=== PATIENT | female | born 1980 | race Caucasian/White ===

== ENCOUNTER 2022-01-12 16:52 | Inpatient (IN) | payer OTHER, MEDICAID ==
[~2022-01-12] VITALS: Ht 167.6 cm; Wt 56.7 kg
[2022-01-12 17:02] VITALS: BP_SYST 107
--- NOTE | 2022-01-12 17:06 | NUR ---
Patient triaged and placed in waiting room. VSS and patient appears in no acute distress at this time. Accompanied by SELF, awaiting available bed, and MD notified of need for MSE.
[2022-01-12] MEDS ORDERED: NACL 0.9% 1,000 ML IV ONE (17:45)
--- NOTE | 2022-01-12 18:04 | NUR ---
Patient to ER bed 07 to gown for evaluation. Side rails up. Report given to DG Mondragon
[2022-01-12 18:13] LABS: BASOPHILS % (AUTO) 0.4 % (0.0-2.0); EOSINOPHILS % (AUTO) 0.9 % (0.0-4.0); HEMATOCRIT 41.1 % (36-48); HEMOGLOBIN 13.9 g/dL (12.0-16.0); LYMPHOCYTES # (AUTO) 0.8 K/uL (1.0-5.5); MEAN CORPUSCULAR HEMOGLOBIN 30 pg (27-31); MEAN CORPUSCULAR HGB CONC 34 % (32-36); MEAN CORPUSCULAR VOLUME 88 fL (79.0-98.0); MONOCYTES # (AUTO) 0.4 K/uL (0.0-1.0); MONOCYTES % (AUTO) 8.9 % (1.7-9.3); NEUTROPHILS # (AUTO) 2.8 K/uL (1.8-7.7); NEUTROPHILS % (AUTO) 70.8 % (40.0-70.0); PLATELET COUNT (AUTO) 205 K/uL (130-430); RED BLOOD CELL COUNT(AUTO) 4.65 MIL/uL (4.2-6.2); RED CELL DISTRIBUTION WIDTH 13.2 % (9.0-15.0)
[2022-01-12 18:14] LABS: ANION GAP 7 (5-15); CALCIUM 8.6 mg/dL (8.4-11.0); CHLORIDE 104 mmol/L (98-107); CREATININE 0.79 mg/dL (0.55-1.30); GLUCOSE 90 mg/dL (70-99); POTASSIUM 4.2 mmol/L (3.5-5.1); SODIUM SERUM 139 mmol/L (136-145); UREA NITROGEN, BLOOD 9 mg/dL (8-21)
[2022-01-12 18:16] LABS: GFR AFRICAN AMERICAN 103 mL/min (>90)
[2022-01-12 18:18] LABS: BILIRUBIN,URINE NEGATIVE (NEGATIVE); BLOOD, URINE NEGATIVE (NEGATIVE); CLARITY/URINE CLEAR (CLEAR); COLOR,URINE YELLOW (YELLOW); GLUCOSE,URINE NEGATIVE (NEGATIVE); KETONES,URINE NEGATIVE (NEGATIVE); LEUKOCYTE ESTERASE ,URINE NEGATIVE (NEGATIVE); NITRITE, URINE NEGATIVE (NEGATIVE); PROTEIN URINE NEGATIVE (NEGATIVE); UROBILINOGEN,URINE 0.2 (0.2-1.0)
--- NOTE | 2022-01-12 18:19 | NUR ---
Pt is A&Ox4. Skin intact. States she has been having diarrhea for the past month but states this morning pt woke up covered in diarrhea and has to wear a diaper. She usually is not incontinent but states she caanot hold the diarrhea. Has no pain. Denies n/v. No chest pain and no sob. VSS. Bed in lowast position. Allergic to lithium. Has hx of seizures and psych issues.
[2022-01-12 18:20] LABS: ALANINE AMINOTRANSFERASE 22 U/L (12-78); ALBUMIN 4.4 g/dL (3.4-4.8); ASPARTATE AMINOTRANSFERASE 16 U/L (10-37); TOTAL BILIRUBIN < 0.1 mg/dL (0.0-1.0)
--- NOTE | 2022-01-12 18:39 | NUR ---
# 20 gauge angiocath placed to left hand. Use of asceptic technique. Opsite placed over site. Blood return noted. Flushed with 10 cc of normal saline. No evidence of infiltration noted. Patient tolerated well.
--- NOTE | 2022-01-12 19:05 | NUR ---
covid swab collected at bedside and sent to lab
--- NOTE | 2022-01-12 19:53 | NUR ---
Admit bed requested Patient will be admitted to care of . Admitted to TELE unit. Diagnosis DEHYDRATION AND ENTERITIS Inpatient (Yes or No) YES Orientation concerns or request close to nursing station (Yes or No) NO Covid Status NEG From Home (Yes or if No enter name of facility) HOME
--- NOTE | 2022-01-12 20:49 | NUR ---
Note daniel in ED - 01/12/22 at 2137 by [facility] ASSUMED CARE, PT IN NAD. RESP EVEN AND UNLABORED, IV FLUIDS COMPLETED. CLAMPED IV, VSS. DENIES ANY N/V AT THIS TIME.
[2022-01-12] MEDS ORDERED: NEU300 PO (21:02)
[2022-01-12] MEDS ORDERED: ESCI20TA PO (21:02)
[2022-01-12] MEDS ORDERED: LURA80TA2 PO (21:02)
[2022-01-12] MEDS ORDERED: LEVE500T9 PO (21:02)
[2022-01-12] MEDS ORDERED: TRAZ-250 PO (21:02)
--- NOTE | 2022-01-12 21:02 | NUR ---
Medication reconciliation completed with information provided by PATIENT. Any prior medication reconciliation on file was reviewed and corrected.
--- NOTE | 2022-01-12 21:10 | NUR ---
ASSUMED CARE, PT IN NAD. RESP EVEN AND UNLABORED, IV FLUIDS COMPLETED. CLAMPED IV, VSS. DENIES ANY N/V AT THIS TIME.
--- NOTE | 2022-01-12 21:34 | NUR ---
PT UP TO BATHROOM, CUP PROVIDED FOR STOOL COLLECTION.
--- NOTE | 2022-01-12 21:51 | NUR ---
STOOL COLLECTION COLLECTED AND SENT TO LAB.
--- NOTE | 2022-01-12 22:45 | NUR ---
PT REPORTS NAUSEA, AND REQUETING ANTIEMETIC. DR CASTELLANOS NOT ANSWERING HIS PHONE PER WHEEL AND CASTER REPAIRER WILL. DR HIGGINBOTHAM GAVE ORDERS FOR ZOFRAN PRN. PT MEDICATED ORDERED.
[2022-01-12] MEDS: ONDANSETRON HCL 4 MG/2 ML VIAL IVP PRN (23:13)
--- NOTE | 2022-01-12 23:14 | NUR ---
PT REPORTS FEELING BETTER. WAITING FOR ADMISSION BED. CN NOTIFIED.
--- NOTE | 2022-01-13 | NUR ---
Admission Note Received patient from ER with diagnosis of DEYDRATION/ ENTERITIS. Initial Plan of Care discussed-patient verbalized understanding. Oriented to room, call light, pain management and safety.
--- NOTE | 2022-01-13 00:57 | NUR ---
Patient will be admitted to care of DR CASTELLANOS. Admitted to unit. Will go to room . Belongings list completed. Complete and up to date summary report printed. SBAR report to be given at bedside with opportunity for questions.
[2022-01-13 01:58] VITALS: BP_SYST 128
--- NOTE | 2022-01-13 02:36 | NUR ---
CONSULTATION PAGED/CALLED Reason for Consultation: DEHYDRATION/ENTERITIS Person Who was Notified: ELBERT Consulting Physician: DR. TAPIA University Professor Specialty: Ordering Physician: DR. CASTELLANOS
--- NOTE | 2022-01-13 04:00 | NUR ---
APPROXIMATELY at this time Dr. Quevedo finally calls back (was paged earlier) Asked about diet order and resuming meds Along with the addition of nicotine patch 21mg which was approved, all meds continued. Diet order regular.
--- NOTE | 2022-01-13 05:48 | NUR ---
CONSULTATION PAGED/CALLED Reason for Consultation: LOOSE STOOL Person Who was Notified: ELBERT Consulting Physician: DR. TAPIA Catalogue Clerk Specialty: Ordering Physician: DR. CASTELLANOS
--- NOTE | 2022-01-13 05:56 | NUR ---
CONSULTATION PAGED/CALLED Reason for Consultation: PATIENT ON PSYCH MEDS Person Who was Notified: ZHANG Consulting Physician: DR. BURKS Water Fabricator Operator Specialty: Ordering Physician: DR. CASTELLANOS
[2022-01-13] MEDS: NACL 0.9% 1,000 ML IV SCH ×5 (06:00→22:10)
--- NOTE | 2022-01-13 07:00 | NUR ---
OPENING PT APPEARS VERY ANXIOUS, STATED THAT SHE NEEDED HER SEIZURE AND PSYCH MEDS SHE MISSED TO TAKE THEM YESTERDAY. REASSURED PATIENT THAT WILL ATTEND TO HER NEEDS SOON HANDS ON REPORT IS FINISHED
[2022-01-13 07:10] LABS: BASOPHILS % (AUTO) 0.5 % (0.0-2.0); EOSINOPHILS % (AUTO) 1.5 % (0.0-4.0); HEMATOCRIT 36.7 % (36-48); HEMOGLOBIN 12.4 g/dL (12.0-16.0); LYMPHOCYTES # (AUTO) 0.8 K/uL (1.0-5.5); LYMPHOCYTES % (AUTO) 28.8 % (20.5-51.5); MEAN CORPUSCULAR HEMOGLOBIN 30 pg (27-31); MEAN CORPUSCULAR HGB CONC 34 % (32-36); MEAN CORPUSCULAR VOLUME 87 fL (79.0-98.0); MONOCYTES # (AUTO) 0.4 K/uL (0.0-1.0); MONOCYTES % (AUTO) 13.6 % (1.7-9.3); NEUTROPHILS # (AUTO) 1.6 K/uL (1.8-7.7); NEUTROPHILS % (AUTO) 55.6 % (40.0-70.0); PLATELET COUNT (AUTO) 169 K/uL (130-430); RED BLOOD CELL COUNT(AUTO) 4.21 MIL/uL (4.2-6.2); RED CELL DISTRIBUTION WIDTH 13.3 % (9.0-15.0)
--- NOTE | 2022-01-13 07:24 | NUR ---
CLOSING NOTES Patient resting in bed - no s/s pain or distress noted. Respirations even and unlabored - head of bed elevated. IV site patent - no s/s redness, infection, or infiltration. Bed locked and in lowest position. Call light within reach.
[2022-01-13 07:28] LABS: CALCIUM 7.4 mg/dL (8.4-11.0); CREATININE 0.64 mg/dL (0.55-1.30); POTASSIUM 3.7 mmol/L (3.5-5.1)
[2022-01-13] MEDS: levETIRAcetam 500 MG TABLET PO SCH ×4 (07:35→21:25)
[2022-01-13] MEDS: CITALOPRAM HYDROBROMIDE 20 MG TABLET PO SCH (07:36)
[2022-01-13] MEDS: NICOTINE 21 MG/24 HR PATCH.TD24 TD SCH (07:36)
[2022-01-13 08:21] VITALS: BP_SYST 88
[2022-01-13] MEDS: GABAPENTIN 300 MG CAPSULE PO SCH ×6 (08:44→21:25)
[2022-01-13] MEDS ORDERED: CITALOPRAM HYDROBROMIDE 20 MG TABLET PO SCH (09:00)
[2022-01-13] MEDS ORDERED: ESCITALOPRAM OXALATE 10 MG TABLET PO SCH (09:00)
[2022-01-13 09:40] LABS: WHITE BLOOD COUNT (AUTO) 2.8 K/uL (4.8-10.8)
--- NOTE | 2022-01-13 10:00 | NUR ---
DIARRHEA ASSISTED TO THE RESTROOM. WATERY STOOLS. OBTAIN SAMPLE FOR TEST.
[2022-01-13] MEDS: ONDANSETRON HCL 4 MG/2 ML VIAL IVP PRN (10:06)
[2022-01-13 11:36] VITALS: BP_SYST 92
[2022-01-13] MEDS ORDERED: ACETAMINOPHEN 325 MG TABLET PO PRN ×2 (12:15)
[2022-01-13] MEDS: metroNIDAZOLE 500 mg/NS 100 ML IV SCH ×3 (12:45→21:28)
--- NOTE | 2022-01-13 13:20 | NUR ---
FLAGYL NOTIFIED COUPON COLLECTION CLERK VANESSA RE DIARRHEA, FLAGYL WAS ORDERED AND ADMINISTERED
[2022-01-13] MEDS ORDERED: LOPERAMIDE HCL 2 MG CAPSULE PO PRN (13:45)
[2022-01-13 18:38] VITALS: BP_SYST 125
--- NOTE | 2022-01-13 19:16 | NUR ---
CLOSING DENIES PAIN AT THIS TIME. ALL NEEDS MET
[2022-01-13 20:00] VITALS: BP_SYST 95
[2022-01-13] MEDS: traZODone HCL 50 MG TABLET (DESYREL) PO SCH (21:00)
[2022-01-13] MEDS ORDERED: traZODone HCL 50 MG TABLET (DESYREL) PO SCH (21:00)
[2022-01-14 00:50] VITALS: BP_SYST 81
[2022-01-14] MEDS: NACL 0.9% 1,000 ML IV SCH ×3 (05:01→18:47)
[2022-01-14] MEDS: metroNIDAZOLE 500 mg/NS 100 ML IV SCH ×3 (06:18→21:20)
--- NOTE | 2022-01-14 06:34 | NUR ---
earlier this shift, pt c/o iv site discomfort - "it's hurting now". site w/o redness, leakage, infiltration, or abnormal appearance. so, pt agreed to turning the ivf off for the time being, rather than a restart on a new site. by 0600 this a.m. pt was agreeable to taking ivpb flagyl via same saline lock site and having the iv stopped once the ivpb was finished. pt w/o c/o discomfort during infusion.
[2022-01-14 07:29] LABS: BASOPHILS % (AUTO) 0.5 % (0.0-2.0); EOSINOPHILS # (AUTO) 0.1 K/uL (0.0-0.4); EOSINOPHILS % (AUTO) 1.6 % (0.0-4.0); HEMATOCRIT 36.3 % (36-48); HEMOGLOBIN 12.2 g/dL (12.0-16.0); LYMPHOCYTES # (AUTO) 0.7 K/uL (1.0-5.5); LYMPHOCYTES % (AUTO) 20.7 % (20.5-51.5); MEAN CORPUSCULAR HEMOGLOBIN 29 pg (27-31); MEAN CORPUSCULAR HGB CONC 34 % (32-36); MEAN CORPUSCULAR VOLUME 87 fL (79.0-98.0); MONOCYTES # (AUTO) 0.4 K/uL (0.0-1.0); MONOCYTES % (AUTO) 12.4 % (1.7-9.3); NEUTROPHILS # (AUTO) 2.3 K/uL (1.8-7.7); NEUTROPHILS % (AUTO) 64.8 % (40.0-70.0); PLATELET COUNT (AUTO) 157 K/uL (130-430); RED BLOOD CELL COUNT(AUTO) 4.16 MIL/uL (4.2-6.2); RED CELL DISTRIBUTION WIDTH 13.1 % (9.0-15.0); WHITE BLOOD COUNT (AUTO) 3.5 K/uL (4.8-10.8)
[2022-01-14 07:35] LABS: CALCIUM 7.2 mg/dL (8.4-11.0); CREATININE 0.56 mg/dL (0.55-1.30); POTASSIUM 3.4 mmol/L (3.5-5.1)
--- NOTE | 2022-01-14 08:10 | NUR ---
received Patient from pm nurse laying in bed awake. A/O x4. No c/o pain, Patient denies pain. Call light within reach. Safety and fall precautions in place. will assume all care of patient.
[2022-01-14] MEDS: levETIRAcetam 500 MG TABLET PO SCH ×3 (09:00→21:20)
[2022-01-14] MEDS: GABAPENTIN 300 MG CAPSULE PO SCH ×4 (09:00→21:20)
[2022-01-14] MEDS: CITALOPRAM HYDROBROMIDE 20 MG TABLET PO SCH (09:22)
[2022-01-14] MEDS: NICOTINE 21 MG/24 HR PATCH.TD24 TD SCH (09:23)
[2022-01-14 11:37] VITALS: BP_SYST 84
--- NOTE | 2022-01-14 14:30 | NUR ---
PATIENTS IV IN LEFT HAND NOT INFUSING OR FLUSHING, NO S/SX OF INFILTRATE AND NO C/O OF PAIN, IV DC WITH CATH INTACT, NEW IV INSERTED ON R HAND
--- NOTE | 2022-01-14 14:49 | NUR ---
Freelance Makeup Artist YANETH Andres received a request for director of social media marketing due to patient's history of ETOH abuse. MACHINE PRESERVATIVE FILLERBritney Andres met with patient at bedside. Patient was awake, alert and orientated x4. MACHINE PRESERVATIVE FILLER completed introductions and reason for referral, patient was open to contact. Current condition- Patient currently resides in a sober living home. She has been sober for 59 days, this included 28 days in inpatient rehab. Substance Abuse- Patient has a 22 year history of ETOH abuse. She is currently participating in [place] ([facility]). This began with 28 days of inpatient treatment, and now a sober living arrangement leading to 59 days of sobriety. Social- The patient has natural supports in place including her father Kenneth Randall , she participates in several support group activities including "several women who support me" and has a sponsor as part of her AA. Mental Health- Patient shares a previous diagnosis of PTSD (receives SSI for this since 2003) and depression. The patient's current PHP also provides intensive mental health services. MACHINE PRESERVATIVE FILLER utilized elements of Cognitive Behavioral Therapy and empathetic and reflective listening techniques to explore the patient's current efforts to remain sober vs previous attempts. She recognized she did not make real efforts previously and expressed she is "working the steps this time". MACHINE PRESERVATIVE FILLER and patient discussed the connections of trauma, mental health, and substance abuse. MACHINE PRESERVATIVE FILLER provided patient affirmations regarding her 59 days of sobriety. Patient declined resources as the PHP includes case management. MACHINE PRESERVATIVE FILLER will continue to be available as needed.
--- NOTE | 2022-01-14 18:54 | NUR ---
PATIENT RESTING COMFORTABLY IN BED NO S./SX OF PAIN OR DISCOMFORT, WILL ENDORSE CARE TO PM NURSE
[2022-01-14 20:00] VITALS: BP_SYST 100
--- NOTE | 2022-01-14 20:00 | NUR ---
Opening notes Pt AAOx4, VSS, afebrile. Pt denies N/V, diarrhea. IVF infusing at ordered rate R. hand 22G clear and patent. Pt's mom at bedside. Call light within reach. Updated with plan of care, pt verb understanding. To monitor.
[2022-01-14] MEDS ORDERED: POTASSIUM CHLORIDE 20 MEQ TAB.PRT.SR PO ONE (21:00)
[2022-01-14] MEDS: traZODone HCL 50 MG TABLET (DESYREL) PO SCH (21:21)
[2022-01-15] MEDS: NACL 0.9% 1,000 ML IV SCH ×3 (00:50→14:10)
--- NOTE | 2022-01-15 03:50 | NUR ---
Dr. Madrid (ID) at bedside.
--- NOTE | 2022-01-15 06:00 | NUR ---
Closing notes Pt asleep, easily awakens. No c/o discomfort or diarrhea. IVF/IV abx infusing at ordered rate R. hand no s/s infiltration. To endorse to AM nurse.
[2022-01-15] MEDS: metroNIDAZOLE 500 mg/NS 100 ML IV SCH ×2 (06:08→14:00)
[2022-01-15 07:19] LABS: ALBUMIN 2.8 g/dL (3.4-4.8); CREATININE 0.53 mg/dL (0.55-1.30); POTASSIUM 3.5 mmol/L (3.5-5.1)
[2022-01-15 07:20] LABS: BASOPHILS % (AUTO) 0.3 % (0.0-2.0); EOSINOPHILS # (AUTO) 0.1 K/uL (0.0-0.4); HEMATOCRIT 35.5 % (36-48); HEMOGLOBIN 11.9 g/dL (12.0-16.0); LYMPHOCYTES % (AUTO) 22.7 % (20.5-51.5); MEAN CORPUSCULAR HEMOGLOBIN 29 pg (27-31); MEAN CORPUSCULAR HGB CONC 34 % (32-36); MEAN CORPUSCULAR VOLUME 87 fL (79.0-98.0); MONOCYTES # (AUTO) 0.5 K/uL (0.0-1.0); MONOCYTES % (AUTO) 12.5 % (1.7-9.3); NEUTROPHILS # (AUTO) 2.6 K/uL (1.8-7.7); NEUTROPHILS % (AUTO) 62.5 % (40.0-70.0); PLATELET COUNT (AUTO) 151 K/uL (130-430); RED BLOOD CELL COUNT(AUTO) 4.07 MIL/uL (4.2-6.2); RED CELL DISTRIBUTION WIDTH 13.3 % (9.0-15.0); WHITE BLOOD COUNT (AUTO) 4.2 K/uL (4.8-10.8)
[2022-01-15 08:00] VITALS: BP_SYST 98
[2022-01-15 08:36] LABS: CALCIUM 7.5 mg/dL (8.4-11.0); TOTAL BILIRUBIN 0.2 mg/dL (0.0-1.0)
[2022-01-15] MEDS: NICOTINE 21 MG/24 HR PATCH.TD24 TD SCH (08:38)
[2022-01-15] MEDS: GABAPENTIN 300 MG CAPSULE PO SCH ×2 (08:39→15:45)
[2022-01-15] MEDS: CITALOPRAM HYDROBROMIDE 20 MG TABLET PO SCH (08:39)
[2022-01-15] MEDS: levETIRAcetam 500 MG TABLET PO SCH (08:39)
[2022-01-15 12:00] VITALS: BP_SYST 98
[2022-01-15] MEDS ORDERED: METR-154 PO (15:03)
--- NOTE | 2022-01-15 17:11 | NUR ---
patient d/c home, discharge instructions provided regarding disease process, new medications, and primary care follow up, patient vebalized understanding, escorted out by rn to lobby and transported home via private automobile. iv in r hand dc'd with catheter intact, no further needs identified
== END 2022-01-15 17:00 | disposition home or self-care (01) | DRG 392 ==
LOC: SED 16:52 → STU 19:28 → SMU 01-13 10:16
PROVIDERS: ADMIT Internal Medicine; ATTEND Internal Medicine
DX: K52.9 Noninfective gastroenteritis and colitis, unspecified (principal); F31.9 Bipolar disorder, unspecified; F10.10 Alcohol abuse, uncomplicated; G40.909 Epilepsy, unspecified, not intractable, without status epilepticus; Z20.822 Contact with and (suspected) exposure to COVID-19; I10 Essential (primary) hypertension; Z63.5 Disruption of family by separation and divorce; Z79.899 Other long term (current) drug therapy
CPT/HCPCS: 36415; 76376; 80048; 80053; 81003; 83605; 85025; 87040; 87045-TC; 87046; 87177; 87230-TC; 89055; 96361; 96374; 99285; G0378; J2405; J3490